=== PATIENT | male | born 1945 | race Caucasian/White ===

== ENCOUNTER 2020-10-05 13:18 | Outpatient (CLI) | payer MEDICARE ==
[~2020-10-05 13:18] MED LIST: barium sulfate 450ml oral suspension ONE
== END 2020-10-05 23:59 | disposition home or self-care (01) ==
LOC: RAD 13:18
PROVIDERS: ATTEND Family Medicine
DX: I69.391 Dysphagia following cerebral infarction (principal)
CPT/HCPCS: 74230